=== PATIENT | male | born 1995 | race Caucasian/White ===

== ENCOUNTER 2021-10-23 10:07 | Emergency (ER) | payer MEDICAID ==
[~2021-10-23] VITALS: Ht 167.6 cm; Wt 88.0 kg
[2021-10-23 12:30] LABS: BASOPHILS % 0.3 % (0.0-2.0); EOSINOPHILS % 0.3 % (0.0-5.0); HEMATOCRIT. 41.2 % (42.0-52.0); HEMOGLOBIN. 13.7 g/dL (14.0-18.0); LYMPHOCYTES % 9.4 % (20.0-50.0); MEAN CORPUSCULAR VOLUME 90.4 fL (80.0-94.0); MEAN PLATELET VOLUME 9.7 fl (7.4-10.4); MONOCYTES % 4.9 % (2.0-8.0); NEUTROPHILS % 85.1 % (40.0-76.0); PLATELET 201 x1000/uL (130-400); RED BLOOD CELL COUNT 4.56 mill/uL (4.7-6.1); RED CELL DISTRIBUTION WIDTH 14.1 % (11.6-14.6)
[2021-10-23 12:40] LABS: CHLORIDE 108 mEq/L (98-107)
[2021-10-23 12:57] LABS: ETHANOL BLOOD < 10 mg/dL; PHOSPHORUS 1.6 mg/dL (2.5-4.9)
[2021-10-23] MEDS ORDERED: ACETAMINOPHEN 325MG TABLET PO ONE (13:45)
[2021-10-23] MEDS ORDERED: IBUPROFEN 400MG TABLET PO ONE (13:45)
[2021-10-23 16:32] VITALS: BP 123/66
== END 2021-10-23 16:15 | disposition home or self-care (01) ==
LOC: ER 10:07
DX: R56.9 Unspecified convulsions (principal); R51.9 Headache, unspecified
CPT/HCPCS: 36415; 71045; 80053; 80320; 83605; 83735; 84100; 84443; 85025; 93005; 99285; G0480